=== PATIENT | male | born 1985 | race Caucasian/White ===

== ENCOUNTER 2022-04-17 03:07 | Emergency (ER) | payer MEDICAID ==
[~2022-04-17] VITALS: Ht 177.8 cm; Wt 75.0 kg
[2022-04-17 03:14] VITALS: BP 187/92
== END 2022-04-17 03:27 ==
LOC: ER 03:08
DX: Z02.89 Encounter for other administrative examinations (principal); Z88.0 Allergy status to penicillin; Z88.1 Allergy status to other antibiotic agents
CPT/HCPCS: 70360; 99283

== ENCOUNTER 2022-08-16 18:34 | Emergency (ER) | payer MEDICAID ==
[2022-08-16 18:48] VITALS: BP 126/52
[2022-08-16] MEDS ORDERED: IBUP-1984 PO (21:34)
== END 2022-08-16 21:57 | disposition home or self-care (01) ==
LOC: ER 18:35
DX: S60.221A Contusion of right hand, initial encounter (principal); Z88.0 Allergy status to penicillin; Z88.1 Allergy status to other antibiotic agents; W01.0XXA Fall on same level from slipping, tripping and stumbling without subsequent striking against object, initial encounter; Y93.89 Activity, other specified; Y92.89 Other specified places as the place of occurrence of the external cause; Y99.8 Other external cause status
CPT/HCPCS: 73130; 99283

== ENCOUNTER 2023-03-04 11:12 | Emergency (ER) | payer MEDICAID ==
[~2023-03-04] VITALS: Ht 177.8 cm; Wt 75.6 kg
[2023-03-04 11:23] VITALS: BP 135/82; PULSE 102; RESP 16; TEMP 98.5; O2SAT 99
[2023-03-04] MEDS ORDERED: LIDOcaine 1% 30ml preserv. free vial SQ STA (11:39)
--- NOTE | 2023-03-04 11:44 | NUR ---
XRAY AT BS
== END 2023-03-04 12:06 | disposition left against medical advice (07) ==
LOC: ER 11:12
DX: S61.012A Laceration without foreign body of left thumb without damage to nail, initial encounter (principal); Z88.0 Allergy status to penicillin; Z88.1 Allergy status to other antibiotic agents; W26.0XXA Contact with knife, initial encounter; Y93.89 Activity, other specified; Y92.89 Other specified places as the place of occurrence of the external cause; Y99.8 Other external cause status
CPT/HCPCS: 73130; 99283; A6449